=== PATIENT | male | born 1970 | race Hispanic/Latino ===

== ENCOUNTER 2018-11-30 15:11 | Outpatient (CLI) | payer BC ==
--- NOTE | 2018-11-30 16:27 | CT ---
CT PARANASAL SINUSES NONCONTRAST: 11/30/18 HISTORY: Sinusitis. FINDINGS: Within the floor of the left maxillary sinus is a smoothly marginated 1.4 cm rounded homogeneous soft tissue density lesion consistent with a mucous retention cyst. No other areas of mucosal thickening or air fluid levels are apparent. Ethmoid infundibula are patent. There is rightward deviation of th e nasal septum. IMPRESSION: No CT evidence of acute or chronic paranasal sinusitis. Small mucous retention cyst left maxillary sinus. POS: [facility]
== END 2018-11-30 15:12 | disposition home or self-care (01) ==
LOC: BICCT 15:11
PROVIDERS: ATTEND Otolaryngology Otology & Neurotology
DX: J32.9 Chronic sinusitis, unspecified (principal); J34.1 Cyst and mucocele of nose and nasal sinus

== ENCOUNTER 2019-01-11 14:26 | Outpatient (CLI) | payer BC ==
--- NOTE | 2019-01-11 17:16 | CT ---
CT OF THE TEMPORAL BONES: Date: 01/11/19 HISTORY: Otosclerosis. TECHNIQUE: Axial CT imaging is obtained at 0.5 mm intervals through the temporal bones with coronal reformatted imaging. FINDINGS: RIGHT TEMPORAL BONE: The internal auditory canal, cochlea, vestibule, vestibular aqueduct, and semicircular canals appear within normal limits. There is abnormal lucency surrounding the cochlea. There is also abnormal lucen cy ventral to the vestibule near the stapes footplate adjacent to the oval window. Ossicles appear in tact. Course of the facial nerve is normal. Tympanic cavity and mastoid air cells are well aerated. V ascular foramina appear within normal limits. Prussak's space is clear and the scutum is sharp. There is no evidence for osseous dehiscence. LEFT TEMPORAL BONE: The internal auditory canal, cochlea, vestibule, and vestibular aqueduct appear unremarkable. Semicir cular canals, course of the facial nerve, and ossicles appear unremarkable. A tympanostomy tube is pr esent on the left. Mastoid air cells and tympanic cavity well aerated. Abnormal osseous lucency surro unds the cochlea. There is also lucency near the oval window at the stapes footplate. Prussak's space is clear and scutum is sharp. No evidence for osseous dehiscence. 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 POS: [facility]
== END 2019-01-11 14:27 | disposition home or self-care (01) ==
LOC: BICCT 14:26
PROVIDERS: ATTEND Otolaryngology Otology & Neurotology
DX: H80.90 Unspecified otosclerosis, unspecified ear (principal); R93.0 Abnormal findings on diagnostic imaging of skull and head, not elsewhere classified
CPT/HCPCS: 70480

== ENCOUNTER 2019-05-09 08:22 | Day surgery (SDC) | payer BC ==
[2019-05-08 11:34] VITALS: BMI 31.3
[2019-05-09] MEDS ORDERED: Oxymetazoline HCl 0.05% ( 15 ML ) ONE ×2 (09:54→10:12)
[2019-05-09] MEDS ORDERED: Bacitracin Zinc Ointment 30 gm TUBE ONE (10:12)
[2019-05-09] MEDS ORDERED: Lidocaine 1% w/Epinephrine 1:100K 20 ML VIAL ONE (10:12)
[2019-05-09] MEDS ORDERED: Meperidine HCl/PF 25 MG/ML VIAL ONE (10:17)
[2019-05-09] MEDS ORDERED: Fentanyl 100 MCG/2 ML VIAL ONE ×2 (10:17→12:25)
[2019-05-09] MEDS ORDERED: Famotidine/PF 20 mg/2ml Vial ONE (10:17)
[2019-05-09] MEDS ORDERED: EPINEPHrine 1 MG/ML AMP ONE (11:13)
--- NOTE | 2019-05-09 12:58 | OP ---
DATE OF PROCEDURE: 05/09/2019 PREOPERATIVE DIAGNOSES: Chronic sinusitis, nasal polyposis, deviated septum, hypertrophic inferior turbinates. POSTOPERATIVE DIAGNOSES: Chronic sinusitis, nasal polyposis, deviated septum, hypertrophic inferior turbinates. PROCEDURES PERFORMED: 1. Septoplasty. 2. Bilateral nasal endoscopy with submucosal resection of inferior turbinates. 3. Bilateral nasal endoscopy with frontal sinusotomy. 4. Bilateral nasal endoscopy with total ethmoidectomy. 5. Bilateral nasal endoscopy with maxillary antrostomy. 6. Bilateral nasal endoscopy with polypectomy. PROCEDURE IN DETAIL: SEPTOPLASTY: After local anesthesia was infiltrated into the submucoperichondrial plane, a standard [place] incision was made with a #15 blade down to the level of the septal cartilage. The caudal elevator was used to elevate the mucoperichondrium from the underlying cartilage. We then proceeded beyond the bony cartilaginous junction and elevated the bony periosteum as well. Great attention was paid to the spur to prevent rent formation in the septal flap. A transcartilaginous incision was then made, while preserving an adequate dorsal and caudal cartilaginous strut for tip support. The deformed cartilage was removed and disarticulated from the bony cartilaginous junction and maxillary crest. This was placed in saline and would later be crushed and returned to the mucoperichondrial envelope. We then elevated the contralateral periosteum from the bony cartilaginous region and removed the deformed portions of the bone and bony spurs. The cartilage was then crushed and placed back into the mucoperichondrial envelope and the mucosa was re-approximated with a quilting stitch composed of rapidly absorbent gut suture. The Des incision was also closed with interrupted gut suture. At the completion of the case, [place] splints were placed and suture secured to the caudal septum. BILATERAL NASAL ENDOSCOPY WITH SUBMUCOSAL RESECTION OF INFERIOR TURBINATES: After consent was obtained, the patient was identified, brought to the operating room, and placed on the operating room table in the supine position. Consent was obtained, notifying the patient of the possibility of additional infections, bleeding, brain injury, and eye/orbital injury. The patient was placed on the operating room table, and general endotracheal anesthesia and intravenous access was obtained. The patient was then positioned, prepped and draped for endoscopic sinus surgery. Nasal preparation included trimming nasal vestibular hairs and spraying in topical Afrin. We then placed Afrin topical solution on nasal pledgets and strategically located them intranasally. The perinasal mucosa was injected with 1% lidocaine with 1:100,000 epinephrine in the submucoperichondrial plane of the septum, lateral nasal wall, and anterior to the uncinate. The patient was then prepped and draped in a sterile fashion and positioned for endoscopic sinus surgery. With the 0-degree endoscope, the patient underwent systematic nasal endoscopy. There were no suspicious internasal masses or lesions identified. We then focused our attention to the osteomeatal complex region under the middle turbinate. The inferior turbinates were visualized with a 0 degree endoscope and outfractured with a Nomi elevator. The inferior medial aspect was cauterized with the electrocautery. Hemostasis was obtained . After adequate airway was established, we turned our attention to the contralateral side and used a similar procedure. Again, a Nomi elevator was used to outfracture inferior turbinates under endoscopic visualization. With a suction cautery, the free inferior medial aspect was cauterized under direct visualization along the length of the inferior turbinate. At this point, we then turned our attention to the contralateral side and proceeded with endoscopic sinus surgery. At the completion of the case, Rice keel splints were placed in the ethmoid cavities after the ethmoidectomy. There were no complications. The patient tolerated the procedure well and was discharged to the recovery room in stable condition prior to return to the preoperative day stay with ultimate discharge home. Prescriptions for pain medication and antibiotics were provided. The patient received intramuscular Depo-Medrol during the case. BILATERAL NASAL ENDOSCOPY WITH FRONTAL SINUSOTOMY: Following the ethmoidectomy, we then turned our attention to the frontal nasal recess. The agger nasi cells were addressed and the frontal recess was exposed. The natural opening to the frontal sinus was identified. At this point, any obstructing shrouds of mucosa and bony fragments were removed with a curved microdebrider. The wound was then examined and found to be free of any obstructing debris. We then turned our attention to the contralateral side and performed a similar procedure again under endoscopic visualization using a 45-degree scope. We were able to visualize the frontal recess. Obstructing shrouds of mucosa and bone were removed with a microdebrider. The natural os of frontal sinus was identified and enlarged and irrigated. At this point, the frontal sinusotomy was completed and we turned to the next area of concern. BILATERAL NASAL ENDOSCOPY WITH TOTAL ETHMOIDECTOMY: The anterior face of the ethmoid bulla was entered and with the micro-debrider, dissection continued posteriorly to the ground lamella. The limits of dissection included the insertion of the middle turbinate, medial orbital wall, and base of skull. We similarly identified the frontal recess and removed shrouds of bone and debris in that region to obtain patency into the agger nasi region and frontal recess. We then entered the ground lamella and its anteroinferior aspect and proceeded posteriorly, opening the posterior ethmoid air-cell system. Again, the limits of dissection included the base of skull and medial orbital wall. BILATERAL NASAL ENDOSCOPY WITH MAXILLARY ANTROSTOMY: The uncinate was then identified and the extent of the uncinate was appreciated by out-fracturing the uncinate with the ball-tip probe. We then used the sickle blade to disarticulate the uncinate from the lateral nasal wall. This was then removed with straight biting and upbiting punches with the remaining shrouds of mucosa and bony septum removed with the micro-debrider. The natural os of the maxillary sinus was then identified and enlarged with the maxillary punches and back biting forceps. BILATERAL NASAL ENDOSCOPY WITH POLYPECTOMY: Under endoscopic visualization, the nasal cavity was systematically examined and encountered large inflammatory polyps. These polyps were infiltrated 1% lidocaine with 1:100,000 epinephrine. The polyps were then addressed using the [place] shaver. Then, the polyps were removed with care not to injure the surrounding normal mucosa. Samples of polyps were taken and sent for histologic evaluation. Bleeding was then controlled. FINDINGS: The patient had polypoid changes in the inferior turbinate, which was extending down into the nasopharynx and polyps emanating from the frontal recess bilaterally. Job ID: [id number]
[2019-05-09] MEDS ORDERED: Morphine 2 MG/ML SYRINGE ONE (13:50)
[2019-05-09] MEDS ORDERED: hydrALAZINE 20 MG/ML VIAL ONE (14:14)
[2019-05-09] MEDS ORDERED: HYDROcodone/Acetaminophen 5/325 mg Tablet ONE (15:29)
--- NOTE | 2019-05-09 16:59 | EKG ---
Test Reason : PREOP Blood Pressure : / mmHG Vent. Rate : 057 BPM Atrial Rate : 057 BPM P-R Int : 174 ms QRS Dur : 090 ms QT Int : 424 ms P-R-T Axes : 032 010 016 degrees QTc Int : 412 ms Sinus bradycardia with sinus arrhythmia Otherwise normal ECG No previous ECGs available Confirmed by DR. Soni CHIN ([id number]) on 05/09/2019 4:58:35 PM Referred By: HECTOR Confirmed By:DR. Soni CHIN
== END 2019-05-09 16:15 | disposition home or self-care (01) ==
LOC: SDC 08:22
PROVIDERS: ATTEND Specialist
PROC: 099Q8ZZ Drainage of Right Maxillary Sinus, Via Natural or Artificial Opening Endoscopic (ICD-10-PCS; principal; 2019-05-09)
PROC: 099R8ZZ Drainage of Left Maxillary Sinus, Via Natural or Artificial Opening Endoscopic (ICD-10-PCS; principal; 2019-05-09)
PROC: 09BL8ZZ Excision of Nasal Turbinate, Via Natural or Artificial Opening Endoscopic (ICD-10-PCS; principal; 2019-05-09)
DX: J32.0 Chronic maxillary sinusitis (principal); J34.2 Deviated nasal septum; J34.3 Hypertrophy of nasal turbinates; J33.9 Nasal polyp, unspecified; H65.199 Other acute nonsuppurative otitis media, unspecified ear; H69.82 Other specified disorders of Eustachian tube, left ear; K21.9 Gastro-esophageal reflux disease without esophagitis
CPT/HCPCS: 93005; 93010; J0131; J0171; J0360; J2001; J2175; J2270; J3010; S0028

== ENCOUNTER 2021-07-28 07:57 | Outpatient (CLI) | payer BC ==
[2021-07-28] MEDS ORDERED: Iopamidol-370 76% 500 ML 1 ML ONE (11:01)
== END 2021-07-28 07:58 | disposition home or self-care (01) ==
LOC: BICCT 07:57
PROVIDERS: ATTEND Physician Assistant Medical
DX: R10.32 Left lower quadrant pain (principal); K57.30 Diverticulosis of large intestine without perforation or abscess without bleeding; R35.0 Frequency of micturition; Z80.42 Family history of malignant neoplasm of prostate
CPT/HCPCS: 74177; Q9967

== ENCOUNTER 2022-04-11 08:43 | Outpatient (CLI) | payer BC | END 2022-04-11 08:44 | disposition home or self-care (01) | LOC: BICRAD 08:43 | PROVIDERS: ATTEND Nurse Practitioner Family | DX: M25.511 Pain in right shoulder (principal) ==